=== PATIENT | male | born 1950 | race Caucasian/White ===

== ENCOUNTER 2019-12-02 17:28 | Inpatient (IN) | payer OTHER, BC ==
[~2019-12-02] VITALS: Ht 188 cm; Wt 124.3 kg
[2019-12-02 21:00] VITALS: BP 131/78
[2019-12-02] MEDS ORDERED: ACETAMINOPHEN TAB 650MG DOSE (2X325MG) PO PRN (21:30)
[2019-12-02] MEDS ORDERED: MOM 30ML SUSPENSION UDC PO PRN (21:30)
[2019-12-02] MEDS ORDERED: ASPIRIN 81 MG CHEW TABLET PO STA (21:30)
--- NOTE | 2019-12-02 21:35 | HPEPDOC ---
[facility] Medical History & Physical Date of Admission Dec 02, 2019 Date of Service: Dec 02, 2019 Attending Physician: ZHANNA TOUSSAINT MD History and Physical TIME OF SERVICE: 945 pm CHIEF COMPLAINT: dyspnea HISTORY OF PRESENT ILLNESS: This 69 yr old M was transferred from [facility]. He is c/o dyspnea that is worse w exertion and chest heaviness that comes w/o warning w/o aggravating or alleviating factors. His vitals were unremarkable except for a BP of 90/57, EKG showed sinus tachy w a rate of 119 & mild T wave inversions in aVR, & respiratory panel was neg 7 chest x-ray showed pulmonary edema. is his [employer] and is aware of the patients transfer here. The pt recently had a stress test that was equivocal. There was a fixed apical inferior defect w/o ischemia due to apical thinning. The were global wall motion abnormalities; the LVEF was 50%. Angina and arrhythmias were not precipitated by stress. REVIEW OF SYSTEMS: 12 point review of systems negative except as listed in HPI PAST MEDICAL/ SURGICAL HISTORY: Chronic G1 diastolic dysfunction Depression Vertigo Hypothyroidism Hx of transient a flutter Migraines MR Vertigo Obesity Chronic Back pain Knee Surgery Wrist Surgery SOCIAL HISTORY: + chew tobacco /+ alcohol socially FAMILY HISTORY: CAD ALLERGIES: Please see below. HOME MEDICATIONS: Please see below. Vital Signs Date Time Temp Pulse Resp B/P (MAP) Pulse Ox O2 Delivery O2 Flow Rate FiO2 12/02/19 21:00 98.0 81 22 131/78 (95) 97 GENERAL APPEARANCE: obese/ well developed /slightly anxious HEENT: no scleral icterus / EOMI CARDIOVASCULAR: RRR/NMRG / chest pain not reproducible w palpation LUNGS: CTAB on RA ABDOMEN: obese/ not tender w palpitation MUSCULOSKELETAL: GONSALO x 4 INTEGUMENT: no generalized palor NEUROLOGICAL: CN -12 intact / speech not dysarthric PSYCHIATRIC: A&Ox 3 /able to understand and follow all commands LABORATORY DATA: 12/02/19 22:32 IMAGING: see HPI MICROBIOLOGY: Please see below. ASSESSMENT: is a 69 yr old w a hx of Chronic HTN, Chronic HFpEF, hypothyroidism and obesity who presented w transient chest pain and dyspnea and will be admitted for evaluation of chest pain. PLAN: 1Chest pain He received ASA Plan: telemetry / f/u serial trops, & d-dimer / ASA / increase PPI from 20 to 40mg daily in case this is due to GERD 2 Dyspnea Plan: as above 3. Vertigo Plan: meclizine 4. Depression Plan: venlafaxine 5. Obesity Plan: f/u A1C & w PCP for sleep apnea screening DVT px w Lovenox Dispo: home after more than 2 midnights stay Home Medications Scheduled Levothyroxine Sodium (Synthroid) 112 Mcg Tablet, 112 MCG PO DAILY Methylphenidate HCl (Methylphenidate HCl) 20 Mg Tablet, 20 MG PO BID MORNING, NOON Venlafaxine HCl (Venlafaxine HCl ER) 75 Mg Cap.er.24h, 75 MG PO DAILY TAKES WITH 150MG FOR 225MG TOTAL Venlafaxine HCl (Venlafaxine HCl ER) 150 Mg Cap.er.24h, 150 MG PO DAILY TAKES WITH 75MG FOR 225MG TOTAL Scheduled PRN Meclizine HCl (Meclizine HCl) 12.5 Mg Tablet, 12.5 MG PO TID PRN for VE RTIGO/DIZZINESS Omeprazole (Omeprazole) 20 Mg Capsule.dr, 20 MG PO BID PRN for HEARTBURN Allergies Coded Allergies: No Known Allergies (Verified , 10/07/02) A-FIB/CHADSVASC A-FIB History Current/History of A-Fib/PAF?: No Current PO Anticoag Therapy: No ZHANNA TOUSSAINT MD Dec 02, 2019 21:35
[2019-12-02 22:47] LABS: HEMATOCRIT 45.9 % (42.0-52.0); HEMOGLOBIN 14.9 g/dl (13.5-17.5); MEAN CORPUSCULAR HEMOGLOBIN 28.6 pg (27.0-33.0); MEAN CORPUSCULAR HGB CONC 32.5 g/dl (32.0-36.5); MEAN CORPUSCULAR VOLUME 88.1 fl (80.0-96.0); PLATELET COUNT, AUTOMATED 226 10^3/uL (150-450); RED BLOOD COUNT 5.21 10^6/uL (4.30-6.10); WHITE BLOOD COUNT 6.2 10^3/uL (4.0-10.0)
[2019-12-02] MEDS ORDERED: SYNT112T2 PO (22:48)
[2019-12-02] MEDS ORDERED: MECL12.589 PO (22:48)
[2019-12-02] MEDS ORDERED: VENL150C43 PO (22:48)
[2019-12-02] MEDS ORDERED: OMEP-218 PO (22:48)
[2019-12-02] MEDS ORDERED: VENL75CA2 PO (22:48)
[2019-12-02] MEDS ORDERED: METH20TA29 PO (22:48)
[2019-12-02 22:58] LABS: INR 1.01; PROTHROMBIN TIME 13.5 SECONDS (11.8-14.0)
[2019-12-02 22:59] LABS: PARTIAL THROMBOPLASTIN TIME 31.1 SECONDS (25.0-38.4)
[2019-12-02 23:26] LABS: BLOOD UREA NITROGEN 31 MG/DL (7-18); CALCIUM LEVEL 8.9 MG/DL (8.8-10.2); CARBON DIOXIDE LEVEL 29 MEQ/L (21-32); CHLORIDE LEVEL 108 MEQ/L (98-107); CREATININE FOR GFR 1.64 MG/DL (0.70-1.30); GLOMERULAR FILTRATION RATE 44.7 (>49); GLUCOSE, FASTING 84 MG/DL (70-100); POTASSIUM SERUM 3.7 MEQ/L (3.5-5.1); SODIUM LEVEL 141 MEQ/L (136-145); TROPONIN I < 0.02 NG/ML (< 0.10)
[2019-12-02 23:34] LABS: D-DIMER QUANT < 270 ng/ml (<500)
[2019-12-03] VITALS: BP 119/70
[2019-12-03] MEDS ORDERED: MECLIZINE 12.5 MG TAB PO PRN (01:45)
[2019-12-03] MEDS ORDERED: OMEPRAZOLE 20 MG CAP PO PRN (01:45)
[2019-12-03 03:38] LABS: HEMATOCRIT 45.5 % (42.0-52.0); HEMOGLOBIN 14.5 g/dl (13.5-17.5); MEAN CORPUSCULAR HEMOGLOBIN 28.1 pg (27.0-33.0); MEAN CORPUSCULAR HGB CONC 31.9 g/dl (32.0-36.5); MEAN CORPUSCULAR VOLUME 88.2 fl (80.0-96.0); PLATELET COUNT, AUTOMATED 215 10^3/uL (150-450); RED BLOOD COUNT 5.16 10^6/uL (4.30-6.10); WHITE BLOOD COUNT 6.1 10^3/uL (4.0-10.0)
[2019-12-03 03:59] LABS: CALCIUM LEVEL 8.8 MG/DL (8.8-10.2); CREATININE FOR GFR 1.57 MG/DL (0.70-1.30); POTASSIUM SERUM 3.8 MEQ/L (3.5-5.1)
[2019-12-03 04:00] VITALS: BP 114/65
[2019-12-03] MEDS ORDERED: LEVOTHYROXINE 112MCG TABLET (0.112MG) PO SCH (06:00)
[2019-12-03 08:00] VITALS: BP 159/89
[2019-12-03] MEDS: METHYLPHENIDATE 5 MG TAB PO SCH ×2 (08:58→12:41)
[2019-12-03] MEDS ORDERED: PANTOPRAZOLE 40MG TAB (PROTONIX) PO SCH (09:00)
[2019-12-03] MEDS ORDERED: ENOXAPARIN 40MG/0.4ML SYRINGE (J1650 PER 10MG) SC SCH (09:00)
[2019-12-03] MEDS ORDERED: VENLAFAXINE **XR** 75MG CAPSULE PO SCH ×2 (09:00)
[2019-12-03] MEDS ORDERED: ASPI81TA26 PO (09:59)
[2019-12-03 12:00] VITALS: BP 134/83
--- NOTE | 2019-12-03 14:15 | DS.PDOC ---
Discharge Summary General Date of Admission Dec 02, 2019 at 21:00 Date of Discharge 12/03/19 Discharge Summary PROCEDURES PERFORMED DURING STAY: [None]. ADMITTING DIAGNOSES: 1. [CP]. DISCHARGE DIAGNOSES: 1. [Atypical CP]. COMPLICATIONS/CHIEF COMPLAINT: Angina. HISTORY OF PRESENT ILLNESS: [This 69 yr old M was transferred from [facility]. He is c/o dyspnea that is worse w exertion and chest heaviness that comes w/o warning w/o aggravating or alleviating factors. His vitals were unremarkable except for a BP of 90/57, EKG showed sinus tachy w a rate of 119 & mild T wave inversions in aVR, & respiratory panel was neg 7 chest x-ray showed pulmonary edema. is his [employer] and is aware of the patients transfer here. The pt recently had a stress test that was equivocal. There was a fixed apical inferior defect w/o ischemia due to apical thinning. The were global wall motion abnormalities; the LVEF was 50%. Angina and arrhythmias were not precipitated by stress.]. HOSPITAL COURSE: [pt remained asymptomatic in hospital. all his troponin are negative, and he had no arrhthmia on the monitor. pt recently had all work up done with his cards. Discussed with Umm, pt can be DC home and F/U in his office as out pt in one week.Continue all home meds, will add ASA 81 mg daily.]. DISCHARGE MEDICATIONS: Please see below. ALLERGIES: Please see below. PHYSICAL EXAMINATION ON DISCHARGE: VITAL SIGNS: Please see below. GENERAL: [wnl] HEENT: [TREY/EOMI] NECK: [Supple] CARDIOVASCULAR EXAMINATION: [S1 S2 reg] RESPIRATORY EXAMINATION: [clear to A&P] ABDOMINAL EXAMINATION: [Benign] EXTREMITIES: [no CCE] SKIN: [NL] NEUROLOGICAL EXAMINATION: [no focal deficit] PSYCHIATRIC EXAMINATION: [NL] LABORATORY DATA: Please see below. IMAGING: [NL] PROGNOSIS: [poor] ACTIVITY: [As tolerated]. DIET: [as tolerated] DISCHARGE PLAN: [as per DC plan] DISPOSITION: .Home DISCHARGE INSTRUCTIONS: 1. [as per DC instruc:]. ITEMS TO FOLLOWUP ON ON OUTPATIENT: 1. [F/u with dr pierre in one week]. DISCHARGE CONDITION: [Stable]. TIME SPENT ON DISCHARGE: 25 minutes. Vital Signs/I&Os Vital Signs Date Time Temp Pulse Resp B/P (MAP) Pulse Ox O2 Delivery O2 Flow Rate FiO2 12/03/19 12:00 99.4 83 22 134/83 (100) 96 Room Air I&O- Last 24 Hours up to 6 AM 12/03/19 05:59 Intake Total 0 ml Output Total 300 ml Balance -300 ml Laboratory Data Labs 24H Laboratory Tests 2 12/02/19 22:32: Nucleated Red Blood Cells % (auto) 0.0, Prothrombin Time 13.5, Prothromb Time International Ratio 1.01, Activated Partial Thromboplast Time 31.1, D-Dimer, Quantitative < 270, Anion Gap 4L, Glomerular Filtration Rate 44.7L, Lactic Acid Level 0.8, Calcium Level 8.9, Troponin I < 0.02 12/03/19 03:19: Nucleated Red Blood Cells % (auto) 0.0, Anion Gap 8, Glomerular Filtration Rate 47.0L, Calcium Level 8.8, Troponin I < 0.02 CBC/BMP Laboratory Tests 12/02/19 22:32 12/03/19 03:19 Microbiology Microbiology 12/02/19 Blood Culture, Received Pending Discharge Medications Scheduled Aspirin (Aspirin EC) 81 Mg Tablet.dr, 1 TAB PO DAILY for pain Levothyroxine Sodium (Synthroid) 112 Mcg Tablet, 112 MCG PO DAILY, (Reported) Methylphenidate HCl (Methylphenidate HCl) 20 Mg Tablet, 20 MG PO BID, (Reported) MORNING, NOON Venlafaxine HCl (Venlafaxine HCl ER) 75 Mg Cap.er.24h, 75 MG PO DAILY, (Reported) TAKES WITH 150MG FOR 225MG TOTAL Venlafaxine HCl (Venlafaxine HCl ER) 150 Mg Cap.er.24h, 150 MG PO DAILY, (Reported) TAKES WITH 75MG FOR 225MG TOTAL Scheduled PRN Meclizine HCl (Meclizine HCl) 12.5 Mg Tablet, 12.5 MG PO TID PRN for VERTIGO/DIZZINESS, (Reported) Omeprazole (Omeprazole) 20 Mg Capsule.dr, 20 MG PO BID PRN for HEARTBURN, (Reported) Allergies Coded Allergies: No Known Allergies (Verified , 10/07/02) AWAIS MCKEE MD Dec 03, 2019 14:15
--- NOTE | 2019-12-24 10:44 | ECGEPIP ---
[facility] Test Date: 2019-12-02 Pat Name: EMILE LIVE Department: Room: [place] [address] Gender: Male Knowledge Engineer: NALINI : 1950 Requested By: ZHANNA TOUSSAINT Order Number: [id number] Reading MD: Graham Kerns Measurements Intervals [place] Rate: 75 P: 17 MS: 214 QRS: -7 QRSD: 98 T: 43 QT: 411 QTc: 461 Interpretive Statements SINUS RHYTHM WITH SINUS ARRHYTHMIA WITH FIRST DEGREE AV BLOCK NONSPECIFIC T-WAVE ABNORMALITY ABNORMAL ECG SEE SCANNED DOWNTIME REPORT
== END 2019-12-03 13:49 | disposition home or self-care (01) | DRG 251 ==
LOC: M PCU 21:00
PROVIDERS: ADMIT Internal Medicine Nephrology; ATTEND Internal Medicine
DX: R10.9 Unspecified abdominal pain (principal); F32.9 Major depressive disorder, single episode, unspecified; Z79.82 Long term (current) use of aspirin; Z79.899 Other long term (current) drug therapy; M54.5 Low back pain; E66.9 Obesity, unspecified; G43.909 Migraine, unspecified, not intractable, without status migrainosus; E03.9 Hypothyroidism, unspecified; R42 Dizziness and giddiness; F17.220 Nicotine dependence, chewing tobacco, uncomplicated